=== PATIENT | male | born 1975 | race Caucasian/White ===

== ENCOUNTER 2016-12-08 10:23 | Emergency (ER) | payer SELFPAY ==
[~2016-12-08] VITALS: Ht 172.7 cm; Wt 99.8 kg
[2016-12-08 11:40] VITALS: BP 175/112
--- NOTE | 2016-12-08 19:12 | ED Psychosocial ---
General Chief Complaint: Psych/Social Disorder Stated Complaint: DETOX Nursing Triage Note: AMB TO ROOM ACCOMPIED BY FEMALE PATIENT STATES HE UNSURE WHY HE IS HERE. HE TOLD HIS FAMILY PEOPLE HAVE BEEN FOLLOWING HIM.WHEN ASKED IF HE NEEDED TO BE ADMITTED PSYCH UNIT HE VOICED KNOW Source: patient, family Exam Limitations: clinical condition History of Present Illness Time seen by provider: 10:36 Initial Comments This 41-year-old man is brought to the emergency room by his family with stated complaint of "detox". Report was received from nursing staff. Patient seemed paranoid per nursing report. He was resistant to evaluation, labs, urinalysis, etc. Labs were ordered based off of complaint. However, before physical exam could be performed, patient left AGAINST MEDICAL ADVICE. I offered to provide him with an assessment. He declined and walked out in a belligerent fashion. Constitutional: no symptoms reported Psychiatric/Neurological: See HPI Past [id number]-[id number] Hx Patient Social History Recent Foreign Travel: No Contact w/Someone Who Travel: No Recent Infectious Disease Expo: No Physical Exam Vital Signs Vital Sign - Last 12Hours 12/08/16 10:52 Temp 98.9 Pulse 102 Resp 18 B/P (MAP) 175/112 Pulse Ox 99 O2 Delivery Room Air Capillary Refill : Less Than 3 Seconds General Appearance: WD/WN, other (agitated) Progress/Results/Core Measures Results/Orders My Orders Orders - BALJEET GAY MD Ekg Tracing (12/08/16 10:36) Monitor-Rhythm Ecg Trace Only (12/08/16 10:36) Saline Lock/Iv-Start (12/08/16 10:36) Vital Signs/I&O Blood Pressure Mean: 133 Progress Note : Progress Note Patient left without being seen as he was tired of waiting. He was belligerent on the way out. ECG Initial ECG Impression Date: Dec 08, 2016 Initial ECG Impression Time: 10:59 Initial ECG Rate: 100 Initial ECG Rhythm: S.Tach Comment Sinus tachycardia with no ST elevation or depression. No abnormal intervals or axis deviation. Departure Impression Impression: Primary Impression: Paranoia Additional Impression: Agitation Disposition: 07 AGAINST MEDICAL ADVICE Condition: Improved Departure-Patient Inst. Referrals: NO,LOCAL PHYSICIAN (PCP) Primary Care Physician BALJEET GAY MD Dec 08, 2016 19:12
== END 2016-12-08 11:40 | disposition left against medical advice (07) ==
LOC: ER 10:27
DX: F22 Delusional disorders (principal); R45.1 Restlessness and agitation
CPT/HCPCS: 93005